=== PATIENT | male | born 1980 | race Hispanic/Latino ===

== ENCOUNTER 2022-09-14 19:47 | Emergency (ER) | payer SELFPAY ==
[~2022-09-14] VITALS: Ht 172.7 cm; Wt 77.3 kg
[2022-09-14 20:45] VITALS: BP 110/69
[2022-09-14 20:49] LABS: HEMATOCRIT 43.3 % (39.0-50.0); HEMOGLOBIN 14.5 g/dl (14.0-18.0); IMMATURE GRANULOCYTES 0.2 % (0.0-5.0); MEAN CELL VOLUME 91.7 fL CALC (80.0-100.0); MEAN CORPUSCULAR HGB 30.7 pG CALC (26.0-32.0); MEAN CORPUSCULAR HGB CONC 33.5 g/dL CAL (32.0-36.0); NEUT# 3.17 thou/uL (1.82-7.42); RED BLOOD COUNT 4.72 mill/uL (4.70-6.10); RED CELL DISTRI WIDTH 12.9 % (11.5-15.5)
[2022-09-14 20:57] LABS: ALBUMIN 4.2 g/dL (3.2-5.0); ALKALINE PHOSPHATASE 50 u/l (38-126); ANION GAP 11 (6-22 (CALC)); BILIRUBIN, TOTAL 0.3 mg/dL (0.0-1.4); BUN 17 mg/dL (9-20); BUN/CREATININE RATIO 15 (12-20 (CALC)); CARBON DIOXIDE 28 mmol/l (22-30); CHLORIDE 105 mmol/l (95-108); CREATININE 1.2 mg/dL (0.7-1.3); GFR FOR AFR.AMER. > 60 ML/MIN (>=60 (CALC)); GFR OTHER RACES > 60 ML/MIN (>=60 (CALC)); POTASSIUM 3.8 mmol/l (3.5-5.1); SGOT/AST 35 u/l (17-59); SODIUM 141 mmol/l (137-146); TOTAL PROTEIN 7.1 g/dL (6.3-8.2)
[2022-09-14 21:01] VITALS: BP 109/74
[2022-09-14] MEDS ORDERED: BACTRIM DS1 TAB PO (22:34)
[2022-09-14] MEDS ORDERED: NAPROXEN500 MG PO (22:34)
[2022-09-14] MEDS ORDERED: KEFLEX500 MG PO (22:34)
[2022-09-14 22:45] VITALS: BP 109/74
== END 2022-09-14 23:24 | disposition home or self-care (01) | DRG 607 ==
LOC: ED 19:47
PROVIDERS: Emergency Medicine
PROC: 0H96XZZ Drainage of Back Skin, External Approach (ICD-10-PCS; principal; 2022-09-14)
DX: L72.8 Other follicular cysts of the skin and subcutaneous tissue (principal); I10 Essential (primary) hypertension
CPT/HCPCS: Q9967